=== PATIENT | female | born 1950 | race Caucasian/White ===

== ENCOUNTER 2020-05-07 13:24 | Emergency (ER) | payer MEDICARE, BC ==
[2020-05-07] MEDS ORDERED: GLUCOPHAGE PO (13:41)
[2020-05-07] MEDS ORDERED: CITALOPRAM40 MG PO (13:41)
[2020-05-07] MEDS ORDERED: ST. JOSEPH ASPI81 MG PO (13:41)
[2020-05-07] MEDS ORDERED: SIMVASTATIN80 MG PO (13:41)
[2020-05-07] MEDS ORDERED: ZESTRIL5 M1 PO (13:41)
[2020-05-07] MEDS ORDERED: METOPROLOL SUC100 M1 PO (13:41)
[2020-05-07 15:18] VITALS: BP 129/78
== END 2020-05-07 15:11 | disposition home or self-care (01) ==
LOC: ED 13:24
DX: S52.571A Other intraarticular fracture of lower end of right radius, initial encounter for closed fracture (principal); E11.9 Type 2 diabetes mellitus without complications; I10 Essential (primary) hypertension; F17.200 Nicotine dependence, unspecified, uncomplicated; Z79.82 Long term (current) use of aspirin; Z79.84 Long term (current) use of oral hypoglycemic drugs; W18.40XA Slipping, tripping and stumbling without falling, unspecified, initial encounter; Y92.410 Unspecified street and highway as the place of occurrence of the external cause